=== PATIENT | male | born 2000 | race Caucasian/White ===

== ENCOUNTER 2020-05-27 12:15 | Emergency (ER) | payer MEDICAID, SELFPAY ==
[~2020-05-27] VITALS: Ht 177.8 cm; Wt 98.9 kg
[2020-05-27 12:27] VITALS: BP 146/82; Ht 177.8 cm; Wt 98.9 kg
== END 2020-05-27 14:50 | disposition home or self-care (01) ==
LOC: ED 12:15
DX: R06.02 Shortness of breath (principal); Z20.828 Contact with and (suspected) exposure to other viral communicable diseases
CPT/HCPCS: Q0092; U0003-CS